=== PATIENT | female | born 1950 | race Caucasian/White ===

== ENCOUNTER 2021-10-29 16:25 | Inpatient (IN) | payer MEDICARE, MEDICAID ==
[~2021-10-29] VITALS: Ht 137.2 cm; Wt 56.0 kg
[2021-10-29 17:35] LABS: BASOPHILS % (AUTO) 1.2 % (0.0-2.0); EOSINOPHILS % (AUTO) 2.3 % (1.0-6.0); HEMATOCRIT 38.8 % (36-46); HEMOGLOBIN 13.1 g/dL (12.0-16.0); MEAN CORPUSCULAR HEMOGLOBIN 29.1 pg (26.0-34.0); MEAN CORPUSCULAR HGB CONC 33.7 G/dL (31.0-37.0); MEAN CORPUSCULAR VOLUME 86 fL (80-100); MONOCYTES # (AUTO) 0.7 K/uL (0.1-1.0); MONOCYTES % (AUTO) 7.8 % (2.0-9.0); NEUTROPHILS # (AUTO) 6.2 K/uL (1.8-7.7); NEUTROPHILS % (AUTO) 66.7 % (40.0-70.0); PLATELET COUNT (AUTO) 293 K/uL (150-450); RED BLOOD CELL COUNT(AUTO) 4.49 MIL/uL (4.00-5.20); RED CELL DISTRIBUTION WIDTH 14.3 % (11.5-14.5)
[2021-10-29 17:52] LABS: ANION GAP 7 mmol/L (8-16); CALCIUM, TOTAL 8.8 mg/dL (8.8-10.5); CARBON DIOXIDE 27 mmol/L (22-29); CHLORIDE 106 mmol/L (98-107); CREATININE 0.63 mg/dL (0.60-1.30); GLOMERULAR FILTR. RATE CALC > 60 mL/min (>60); GLUCOSE,RANDOM 97 mg/dL (70-110); POTASSIUM 3.5 mmol/L (3.5-5.1); SODIUM SERUM 140 mmol/L (136-145); UREA NITROGEN, BLOOD 14 mg/dL (7-18)
[2021-10-29 17:57] LABS: ALANINE AMINOTRANSFERASE 43 U/L (12-78); ALBUMIN 3.5 g/dL (3.4-5.0); ALKALINE PHOSPHATASE 95 U/L (46-116); ASPARTATE AMINOTRANSFERASE 30 U/L (15-37); BILIRUBIN,TOTAL 0.3 mg/dL (0.1-1.0); TOTAL PROTEIN, SERUM 6.9 g/dL (6.4-8.2)
[2021-10-29 19:11] LABS: COVID AG,FIA SOURCE NASAL SWAB
[2021-10-30] MEDS ORDERED: HALOPERIDOL 5 MG TABLET PO PRN (01:15)
[2021-10-30 03:09] VITALS: BP 131/86
[2021-10-30] MEDS: ZOLPIDEM TARTRATE 10 MG TABLET PO PRN (03:27)
[2021-10-30] MEDS ORDERED: ALBUTEROL SULFATE HFA 90 MCG/PUFF 8 GM INHALER IH PRN (07:00)
[2021-10-30] MEDS ORDERED: MAG HYDROX/AL HYDROX/SIMETH ES 30 ML SUSPENSION UDCUP PO PRN (07:00)
[2021-10-30] MEDS ORDERED: LOPERAMIDE HCL 2 MG CAPSULE PO PRN (07:00)
[2021-10-30] MEDS ORDERED: MAGNESIUM HYDROXIDE SUSPENSION 30 ML UDCUP PO PRN (07:00)
[2021-10-30] MEDS ORDERED: GuaiFENesin/D-METHORPHAN [SUGAR-FREE] 200-20MG/10 ML SYRUP UDCUP PO PRN (07:00)
[2021-10-30] MEDS ORDERED: DOCUSATE SODIUM 100 MG CAPSULE PO PRN (07:00)
[2021-10-30] MEDS ORDERED: NICOTINE 14 MG/24 HOUR PATCH TD PRN (07:00)
[2021-10-30] MEDS ORDERED: CloNIDine HCL 0.1 MG TABLET PO PRN (07:00)
[2021-10-30] MEDS ORDERED: PETROLATUM,WHITE 28 GM JELLY TP PRN (07:00)
[2021-10-30] MEDS ORDERED: ONDANSETRON HCL 4 MG TABLET PO PRN (07:00)
[2021-10-30] MEDS ORDERED: ACETAMINOPHEN 325 MG TABLET PO PRN (07:00)
[2021-10-30 08:09] VITALS: BP 122/63
[2021-10-30] MEDS: IBUPROFEN 400 MG TABLET PO PRN ×2 (08:51→20:39)
[2021-10-30] MEDS: LORazepam 2 MG TABLET PO PRN (14:31)
[2021-10-30 20:06] VITALS: BP 107/62
[2021-10-31 01:06] VITALS: BP 110/72
[2021-10-31] MEDS: ZOLPIDEM TARTRATE 10 MG TABLET PO PRN (01:39)
[2021-10-31 08:10] VITALS: BP 118/73
[2021-10-31] MEDS: LORazepam 2 MG TABLET PO PRN (13:30)
[2021-10-31] MEDS: IBUPROFEN 400 MG TABLET PO PRN (13:31)
== END 2021-10-31 17:30 | disposition home or self-care (01) | DRG 885 ==
LOC: EMS 17:12 → B3A 10-30 01:03
PROVIDERS: ADMIT Psychiatry & Neurology Child & Adolescent Psychiatry; ATTEND Psychiatry & Neurology Child & Adolescent Psychiatry
DX: F33.2 Major depressive disorder, recurrent severe without psychotic features (principal); Z20.822 Contact with and (suspected) exposure to COVID-19; F41.9 Anxiety disorder, unspecified; G47.00 Insomnia, unspecified; Z90.710 Acquired absence of both cervix and uterus
CPT/HCPCS: 80053; 85025; 99285; G0480